=== PATIENT | male | born 1960 | race Caucasian/White ===

== ENCOUNTER 2022-11-24 15:07 | Emergency (ER) | payer OTHER ==
[~2022-11-24] VITALS: Ht 167.6 cm; Wt 68.5 kg
[2022-11-24] MEDS ORDERED: IV NORMAL SALINE 1000 ML BAG IV ONE (15:30)
[2022-11-24 16:02] LABS: BASOPHILS % (AUTO) 0.3 % (0.0-2.0); EOSINOPHILS # (AUTO) 0.1 K/uL (0.0-0.7); EOSINOPHILS % (AUTO) 1.9 % (0.0-7.0); LYMPHOCYTES # (AUTO) 0.2 K/uL (0.8-4.8); LYMPHOCYTES % (AUTO) 3.3 % (20.5-51.5); MEAN CORPUSCULAR HEMOGLOBIN 30.9 uug (23.8-33.4); MEAN CORPUSCULAR HGB CONC 35 g/dL (32.5-36.3); MEAN CORPUSCULAR VOLUME 87.4 fL (73.0-96.2); MONOCYTES # (AUTO) 0.4 K/uL (0.1-1.30); MONOCYTES % (AUTO) 8.8 % (0.0-11.0); NEUTROPHILS # (AUTO) 4.1 K/uL (1.8-8.9); NEUTROPHILS % (AUTO) 85.7 % (38.5-71.5); PLATELET COUNT (AUTO) 154 K/uL (152-348); RED CELL DISTRIBUTION WIDTH 13.8 % (12.1-16.2); WHITE BLOOD COUNT (AUTO) 4.8 K/uL (3.6-10.2)
[2022-11-24 16:04] LABS: DIFFERENTIAL COMMENT 1; HEMATOCRIT 20.4 % (36.7-47.1); HEMOGLOBIN 7.2 g/dL (12.5-16.3); RED BLOOD CELL COUNT(AUTO) 2.34 MIL/uL (4.06-5.63)
[2022-11-24] MEDS ORDERED: GABA-532 PO (16:09)
[2022-11-24] MEDS ORDERED: PRED2.5T PO (16:09)
[2022-11-24] MEDS ORDERED: ABIR250T2 PO (16:09)
[2022-11-24] MEDS ORDERED: BICA50TA49 PO (16:09)
[2022-11-24] MEDS ORDERED: AMLO10TA59 PO (16:09)
[2022-11-24] MEDS ORDERED: TAMS-3 PO (16:09)
[2022-11-24] MEDS ORDERED: LISI1TAB29 PO (16:09)
[2022-11-24 16:14] LABS: CALCIUM 8.4 mg/dL (8.5-10.1); CARBON DIOXIDE 23 mmol/L (21-32); CHLORIDE 106 mmol/L (98-107); GLUCOSE 127 mg/dL (74-106); POTASSIUM 2.9 mmol/L (3.5-5.1); SODIUM SERUM 140 mmol/L (136-145); UREA NITROGEN, BLOOD 63 mg/dL (7-18)
[2022-11-24 16:23] LABS: ALANINE AMINOTRANSFERASE 103 U/L (16-63); ALBUMIN 2.8 g/dL (3.4-5.0); ALKALINE PHOSPHATASE 53 U/L (50-136); ASPARTATE AMINOTRANSFERASE 47 U/L (15-37); BILIRUBIN,DIRECT 0.2 mg/dL (0.0-0.2); BILIRUBIN,TOTAL 0.5 mg/dL (0.2-1.0); TOTAL PROTEIN, SERUM 7.3 g/dL (6.4-8.2)
[2022-11-24 16:24] LABS: ACETAMINOPHEN < 2.0 ug/mL (10-30)
[2022-11-24 16:28] LABS: THYROID STIMULATING HORMONE 1.361 mIU/mL (0.358-3.740)
[2022-11-24 16:29] LABS: ETHANOL < 3 MG/DL (0-10)
[2022-11-24] MEDS ORDERED: POTASSIUM CHLORIDE 200 ML ONE (16:37)
[2022-11-24] MEDS: POTASSIUM CHLORIDE 50 ML IV SCH ×2 (16:47→17:48)
[2022-11-24 16:53] LABS: *BILIRUBIN,URIN NEGATIVE (NEGATIVE); *BLOOD, URINE 1+ (NEGATIVE); *COLOR,URINE YELLOW (YELLOW); *KETONES,URINE NEGATIVE (NEGATIVE); *PROTEIN,URINE TRACE (NEGATIVE); *UROBILINOGEN,URINE 0.2 E.U./dl (NORMAL); LEUKOCYTE ESTERASE ,URINE 2+ (NEGATIVE); NITRITE, URINE NEGATIVE (NEGATIVE); PH,URINE 5.5 (5.0-8.0); UGLUCOSE NEGATIVE (NEGATIVE)
[2022-11-24 16:58] LABS: *CLARITY,URINE SLIGHTLY CLOUDY (CLEAR)
[2022-11-24 17:00] LABS: *AMPHETAMINE, URINE NEGATIVE (NEGATIVE); *BARBITURATE, URINE NEGATIVE (NEGATIVE); *BENZODIAZEPINE, URINE NEGATIVE (NEGATIVE); *CANNABINOID, URINE NEGATIVE (NEGATIVE); *COCCAINE, URINE NEGATIVE (NEGATIVE); *OPIATE, URINE NEGATIVE (NEGATIVE); *PHENCYCLIDINE SCREEN,URINE NEGATIVE (NEGATIVE); FENTANYL, URINE NEGATIVE (NEGATIVE)
[2022-11-24 17:16] LABS: WBC,URINE TNTC /HPF (0-3)
[2022-11-24 17:17] LABS: BACTERIA,URINE FEW /HPF (NONE SEEN); SQUAMOUS EPITHELIAL CELL,UR NONE SEEN /HPF (NONE SEEN)
[2022-11-24] MEDS ORDERED: CEFTRIAXONE 1 G in IV DEXTROSE 5% 50 ML IV ONE (17:45)
[2022-11-24 18:25] VITALS: O2SAT 99
[2022-11-24] MEDS ORDERED: CEFTRIAXONE /D5W 50ML IVPB **ER PYXIS IV ONE (19:13)
== END 2022-11-24 20:35 | disposition short-term general hospital (02) ==
LOC: ER 15:07
DX: R55 Syncope and collapse (principal); D64.9 Anemia, unspecified; C61 Malignant neoplasm of prostate; N17.9 Acute kidney failure, unspecified; R07.89 Other chest pain; Z79.899 Other long term (current) drug therapy; Z20.822 Contact with and (suspected) exposure to COVID-19
CPT/HCPCS: 36415; 70450; 71045; 83605; 84443; 84484; 85025; 85730; 86850; 86900; 86901; 87040; 93005; A4663; G0480; J0696; J3480